=== PATIENT | male | born 1970 | race Caucasian/White ===

== ENCOUNTER 2016-04-27 15:22 | Emergency (ER) | payer OTHER ==
[~2016-04-27] VITALS: Ht 177.8 cm; Wt 77.4 kg
[~2016-04-27 15:22] MED LIST: FLUOXETINE HCL40 MG; OXYCODONE HCL15 MG; RITALIN10 MG
[2016-04-27] MEDS ORDERED: XANAX1 MG PO (15:43)
[2016-04-27 16:00] VITALS: BP 130/95
== END 2016-04-27 16:02 | disposition left against medical advice (07) ==
LOC: EME → EDBD 15:22 → EME 15:22
DX: Z04.1 Encounter for examination and observation following transport accident (principal)

== ENCOUNTER 2016-05-04 15:27 | Emergency (ER) | payer OTHER ==
[~2016-05-04] VITALS: Ht 175.3 cm; Wt 76.9 kg
[~2016-05-04 15:27] MED LIST changes: +XANAX1 MG PO
[2016-05-04 16:33] LABS: HEMATOCRIT 42.7 % (38.0-50.0); MCH 29.7 PG (29.0-34.0); MCHC 33.7 G/DL (30.0-36.0); MEAN PLAT.VOLUME 9.1 uM^3 (9.0-12.4); PLATELET COUNT 279 K/uL (156-360); RBC DIS.WIDTH-CV 13.1 % (11.8-14.6); RBC DIS.WIDTH-SD 41.1 % (39-53); RED BLOOD COUNT 4.85 M/uL (4.00-5.50); WHITE BLOOD COUNT 6.4 K/uL (4.1-10.2)
[2016-05-04 16:48] LABS: CHLORIDE 106 mEq/L (99-109); SODIUM 139 mEq/L (136-147)
[2016-05-04 16:50] LABS: GLUCOSE 104 mg/dL (70-99)
[2016-05-04 16:52] LABS: ANION GAP 7 MEQ/L (2-14)
[2016-05-04 16:54] LABS: GFR ESTIMATE (CALCULATED) > 59 mL/min/
[2016-05-04 16:55] LABS: UREA NITROGEN (BUN) 18 mg/dL (9-23)
[2016-05-04 18:59] LABS: ADD MEDTOX COMMENT Y; AMPHETAMINE NEGATIVE (500 ng/mL); BARBITURATES NEGATIVE (200 ng/mL); BENZODIAZEPINES PRESUMPTIVE POSITIVE (150 ng/mL); COCAINE NEGATIVE (150 ng/mL); INTERNAL CONTROLS VALID? YES; METHADONE NEGATIVE (200 ng/mL); METHAMPHETAMINE NEGATIVE (500 ng/mL); OPIATES (MORPHINE) NEGATIVE (100 ng/mL); OXYCODONE NEGATIVE (100 ng/mL); PHENCYCLIDINE NEGATIVE (25 ng/mL); PROPOXYPHENE NEGATIVE (300 ng/mL); THC CANNABINOIDS NEGATIVE (50 ng/mL); TRICYCLIC ANTIDEPRESSANTS NEGATIVE (300 ng/mL)
[2016-05-04 19:18] VITALS: BP 135/73
[2016-05-04 19:47] LABS: BENZODIAZEPINES, URINE SCREEN POSITIVE (200 ng/mL)
== END 2016-05-04 19:21 | disposition home or self-care (01) ==
LOC: EME 15:27
PROVIDERS: Emergency Medicine
DX: S06.0X0A Concussion without loss of consciousness, initial encounter (principal); M54.5 Low back pain; V44.6XXA Car passenger injured in collision with heavy transport vehicle or bus in traffic accident, initial encounter; Y92.411 Interstate highway as the place of occurrence of the external cause
CPT/HCPCS: 70450; 71020; 72128; 72131; 80048; 81003; 84999; 85027; 93005; 99281; 99284

== ENCOUNTER 2017-01-25 04:44 | Emergency (ER) | payer OTHER ==
[~2017-01-25] VITALS: Ht 177.8 cm; Wt 101.2 kg
[2017-01-25 05:32] LABS: HEMATOCRIT 49.2 % (38.0-50.0); MCH 30.1 PG (29.0-34.0); MCHC 33.5 G/DL (30.0-36.0); MCV 89.6 FL (86-99); MEAN PLAT.VOLUME 9.1 uM^3 (9.0-12.4); PLATELET COUNT 314 K/uL (156-360); RBC DIS.WIDTH-CV 12.4 % (11.8-14.6); RBC DIS.WIDTH-SD 41.1 % (39-53); RED BLOOD COUNT 5.49 M/uL (4.00-5.50); WHITE BLOOD COUNT 10.3 K/uL (4.1-10.2)
[2017-01-25 05:33] LABS: CHLORIDE 105 mEq/L (99-109); SODIUM 143 mEq/L (136-147)
[2017-01-25 05:35] LABS: GLUCOSE 140 mg/dL (70-99)
[2017-01-25 05:37] LABS: ANION GAP 16 MEQ/L (2-14)
[2017-01-25 05:39] LABS: GFR ESTIMATE (CALCULATED) > 59 mL/min/
[2017-01-25 05:40] LABS: UREA NITROGEN (BUN) 14 mg/dL (9-23)
[2017-01-25 06:53] VITALS: BP 169/109
[2017-01-25 09:42] LABS: LYME DISEASE SEROLOGY SCREEN NEGATIVE (NEGATIVE)
== END 2017-01-25 06:54 | disposition home or self-care (01) ==
LOC: EME 04:44
PROVIDERS: Emergency Medicine
DX: R51 Headache (principal); S80.861A Insect bite (nonvenomous), right lower leg, initial encounter; W57.XXXA Bitten or stung by nonvenomous insect and other nonvenomous arthropods, initial encounter; R03.0 Elevated blood-pressure reading, without diagnosis of hypertension
CPT/HCPCS: 70496; 80048; 85027; 86618; 99281; 99285; J1630; J7030

== ENCOUNTER 2017-02-04 16:19 | Emergency (ER) | payer OTHER ==
[~2017-02-04] VITALS: Ht 175.3 cm; Wt 106.6 kg
[2017-02-04] MEDS ORDERED: ZOFRAN ODT4 MG PO (18:01)
[2017-02-04 19:02] VITALS: BP 153/99
== END 2017-02-04 19:14 | disposition home or self-care (01) ==
LOC: EME → EDBD 16:19 → EME 16:19
DX: F11.23 Opioid dependence with withdrawal (principal)
CPT/HCPCS: 99281; 99284; J2405